=== PATIENT | male | born 1970 | race American Indian/Alaskan Native ===

== ENCOUNTER 2019-02-26 02:26 | Inpatient (IN) | payer MEDICARE ==
--- NOTE | 2019-02-26 04:27 | Emergency Department Report ---
HPI - General Chief Complaint: Extremity Injury, Lower Time Seen by Provider: 02/26/19 02:43 - HPI HPI: 48-year-old male presents to the emergency department via EMS from [facility] with a complaint of a left ankle fracture. He presents with a radiology report that shows a trimalleolar fracture. The patient had said that he was going to the bathroom and his body went one way as he fell but his foot and leg remained planted. The patient received 100 g of fentanyl in route with EMS that has caused him to be sedated. He has a past medical history of Parkinson's disease, bipolar disorder, hyperlipidemia, hypertension. ED Past Medical Hx - Past Medical History Hx Hypertension: Yes Hx Congestive Heart Failure: No Hx Diabetes: No Hx Seizures: Yes Hx Psychiatric Treatment: Yes (Bipolar, Depression) Hx Asthma: No Hx COPD: No Hx HIV: No Additional medical history: Parkinson's, PLEURISY, ANXIETY, CYSTITIS, CHRONIC PAIN , HYPERLIPIDEMIA, CHRONIC RESP. FAILURE - Surgical History Additional Surgical History: LEFT ARM - Social History Smoking Status: Unknown if ever smoked - Medications Home Medications: Home Medications Medication Instructions Recorded Confirmed Last Taken Type Carvedilol [Coreg] 3.125 mg PO BID 05/16/17 01/10/18 1 Day Ago History ~01/09/18 Gabapentin [Neurontin] 300 mg PO Q8HR 05/16/17 01/10/18 1 Day Ago History ~01/09/18 PARoxetine [Paxil] 20 mg PO QAM 05/16/17 01/10/18 1 Day Ago History ~01/09/18 QUEtiapine [SEROquel] 400 mg PO QHS 05/16/17 01/10/18 1 Day Ago History ~01/09/18 Rosuvastatin Calcium 20 mg PO QHS 05/16/17 01/10/18 1 Day Ago History ~01/09/18 amLODIPine [Norvasc] 10 mg PO QAM 05/16/17 01/10/18 1 Day Ago History ~01/09/18 Carbidopa/Levodopa 10-100 [Sinemet 3 tab PO TID 30 Days tablet 05/23/17 01/10/18 1 Day Ago Rx 10/100] ~01/09/18 diazePAM TAB [Valium] 5 mg PO Q8H #90 tablet 05/23/17 01/10/18 1 Day Ago Rx ~01/09/18 ED Review of Systems ROS: Stated complaint: LT ANKLE PAIN Other details as noted in HPI Comment: All other systems reviewed and negative Constitutional: denies: chills, fever Eyes: denies: eye pain, vision change ENT: denies: ear pain, throat pain Respiratory: denies: cough, shortness of breath Cardiovascular: denies: chest pain, palpitations Gastrointestinal: denies: abdominal pain, vomiting Genitourinary: denies: dysuria, frequency Musculoskeletal: joint swelling, arthralgia Skin: denies: rash, lesions Neurological: denies: headache, numbness Physical Exam - Physical Exam Vital Signs: Vital Signs 02/26/19 02:33 Temperature 98.4 F Pulse Rate 94 H Respiratory 16 Rate Blood Pressure 144/85 O2 Sat by Pulse 100 Oximetry Physical Exam: GENERAL: The patient is well-developed well-nourished. HENT: Normocephalic. Atraumatic. Patient has moist mucous membranes. EYES: Extraocular motions are intact. NECK: Supple. Trachea is midline. CHEST/LUNGS: Clear to auscultation. There is no respiratory distress noted. HEART/CARDIOVASCULAR: Regular. There is no tachycardia. There is no murmur. ABDOMEN: Abdomen is soft, nontender. There is no abdominal distention. SKIN: There is nonpitting swelling of the left ankle and distal leg. NEURO: The patient is awake, alert, and oriented. The patient is cooperative. The patient has no focal neurologic deficits. The patient has slow speech but not slurred. MUSCULOSKELETAL: There is tenderness to palpation to the circumferential left ankle and distal tib-fib. Decreased range of motion of the left foot and ankle secondary to pain and no fracture. +2 over 4 pedal pulse and capillary refill less than 2 seconds to the affected left lower extremity. ED Course Vital Signs 02/26/19 02:33 Temperature 98.4 F Pulse Rate 94 H Respiratory 16 Rate Blood Pressure 144/85 O2 Sat by Pulse 100 Oximetry - Consultations Consultation #1: 02/26/19 04:56 I spoke with the orthopedist on-call, Dr. Chaudhry, who has agreed to consult on this patient regarding his trimalleolar fracture. ED Medical Decision Making - Radiology Data Radiology results: image reviewed interpreted by me: X-ray of the left ankle shows a trimalleolar fracture. - Medical Decision Making This patient presents from his retirement facility with a left trimalleolar ankle fracture. He was placed in a [place] splint. He is neurovascularly intact both before and after the splint placement. I spoke with the individual who was listed as the person to contact, Yani Garcia, but she was a previous caregiver at a cup that the patient was at and will sometimes look out after him, but is not DPOA or medical decision maker. The patient says that he does not have any family. My concern is that the patient would go back to the retirement facility and have a difficult time with outpatient orthopedic follow-up. While the patient does have to use a walker or the back of a wheelchair in order to ambulate, the patient does ambulate, and therefore may need surgical repair of this trimalleolar fracture. For this reason, I spoke with the orthopedist operations boardman has agreed to consult on the patient. And the patient was accepted for admission by the hospitalist service and Dr. Post. - Differential Diagnosis ankle fracture, ankle sprain, contusion Critical Care Time: No Critical care attestation.: If time is entered above; I have spent that time in minutes in the direct care of this critically ill patient, excluding procedure time. ED Disposition Clinical Impression: Parkinson disease Trimalleolar fracture of ankle, closed Qualifiers: Encounter type: initial encounter Laterality: left Qualified Code(s): S82.852A - Displaced trimalleolar fracture of left lower leg, initial encounter for closed fracture Disposition: 09 OP ADMIT IP TO THIS HOSP Is pt being admited?: Yes Condition: Fair Referrals: FELIPE REY MD [Primary Care Provider] - 3-5 Days
[2019-02-26 05:05] LABS: Basophils % (Auto) 0.4 % (0.0-1.8); Eosinophils # (Auto) 0.1 K/mm3 (0.0-0.4); Eosinophils % (Auto) 0.9 % (0.0-4.3); Hematocrit 40.5 % (35.5-45.6); Hemoglobin 13.7 gm/dl (11.8-15.2); Lymphocytes # (Auto) 1.8 K/mm3 (1.2-5.4); Mean Corpuscular HGB Conc 34 % (32-34); Mean Corpuscular Volume 88 fl (84-94); Monocytes # (Auto) 0.5 K/mm3 (0.0-0.8); Platelet Count 177 K/mm3 (140-440); Red Blood Count 4.61 M/mm3 (3.65-5.03); Red Cell Distribution Width 14.4 % (13.2-15.2)
[2019-02-26 05:25] LABS: BUN/Creatinine Ratio 12; Blood Urea Nitrogen 11 mg/dL (9-20); Calcium 9.2 mg/dL (8.4-10.2); Hemolysis Index 4
--- NOTE | 2019-02-26 05:58 | History and Physical Report ---
<ANIYAH BUCKLEY - Last Filed: 02/26/19 06:22> History of Present Illness Date of examination: 02/19/19 Date of admission: 02/26/2019 Chief complaint: s/p fall History of present illness: Pt is a 48-year-old male with PMHx of Parkinson's disease, bipolar disorder, hyperlipidemia, hypertension who was brought to the ER by EMS for c/o left ankle pain. Pt resides in a SNF ([facility]), he reports that he fell at the SNF and hurts his left ankle, he complains of severe pain on the left ankle (which was treated prior to arrival) and inability to bear weight on the left leg. He denies any acute illness, he denies head injury, denies dizziness, denies visual changes, denies sycope. Pt presents with a radiology report from the facility that shows a trimalleolar fracture. Pt is admitted for fracture repair surgery in am. Past History Past Medical History: hypertension, hyperlipidemia, other (parkinson's disease) Past Surgical History: No surgical history Social history: no significant social history Family history: no significant family history Medications and Allergies Allergies Allergy/AdvReac Type Severity Reaction Status Date / Time No Known Allergies Allergy Verified 05/31/17 14:47 Home Medications Medication Instructions Recorded Confirmed Last Taken Type Carvedilol [Coreg] 3.125 mg PO BID 05/16/17 02/28/19 1 Day Ago History ~01/09/18 Gabapentin [Neurontin] 300 mg PO Q8HR 05/16/17 02/28/19 1 Day Ago History ~01/09/18 PARoxetine [Paxil] 20 mg PO QAM 05/16/17 02/28/19 1 Day Ago History ~01/09/18 QUEtiapine [SEROquel] 400 mg PO QHS 05/16/17 02/28/19 1 Day Ago History ~01/09/18 Rosuvastatin Calcium 20 mg PO QHS 05/16/17 02/28/19 1 Day Ago History ~01/09/18 amLODIPine [Norvasc] 10 mg PO QAM 05/16/17 02/28/19 1 Day Ago History ~01/09/18 Carbidopa/Levodopa 10-100 [Sinemet 3 tab PO TID 30 Days tablet 05/23/17 02/28/19 1 Day Ago Rx 10/100] ~01/09/18 diazePAM TAB [Valium] 5 mg PO Q8H #90 tablet 05/23/17 02/28/19 1 Day Ago Rx ~01/09/18 levoFLOXacin [Levaquin] 750 mg PO QDAY #3 tablet 03/03/19 Unknown Rx Active Meds: Active Medications Enoxaparin Sodium (Lovenox) 40 mg SUB-Q QDAY@1000 [facility] Review of Systems Musculoskeletal: limitation of motion, fractures Exam - Constitutional Vitals: Temp Pulse Resp BP Pulse Ox 98.4 F 77 20 104/70 96 02/26/19 02:33 02/26/19 05:00 02/26/19 05:00 02/26/19 05:00 02/26/19 05:00 General appearance: Present: no acute distress - EENT Eyes: Present: EOM intact ENT: hearing intact - Neck Neck: Present: supple, normal ROM - Respiratory Respiratory: bilateral: CTA - Cardiovascular Rhythm: regular - Extremities Extremities: no ischemia, No edema Peripheral Pulses: within normal limits - Abdominal General gastrointestinal: Present: non-tender, non-distended Male genitourinary: Present: deferred - Rectal Rectal Exam: deferred - Integumentary Integumentary: Present: warm, dry - Musculoskeletal Musculoskeletal: other (left ankle fractur and pain) - Psychiatric Psychiatric: cooperative - Neurologic Neurologic: moves all extremities Results - Labs CBC & Chem 7: 02/26/19 04:40 02/26/19 04:40 Labs: Laboratory Last Values WBC 7.4 K/mm3 (4.5-11.0) 02/26/19 04:40 RBC 4.61 M/mm3 (3.65-5.03) 02/26/19 04:40 Hgb 13.7 gm/dl (11.8-15.2) 02/26/19 04:40 Hct 40.5 % (35.5-45.6) 02/26/19 04:40 MCV 88 fl (84-94) 02/26/19 04:40 MCH 30 pg (28-32) 02/26/19 04:40 MCHC 34 % (32-34) 02/26/19 04:40 RDW 14.4 % (13.2-15.2) 02/26/19 04:40 Plt Count 177 K/mm3 (140-440) 02/26/19 04:40 Lymph % (Auto) 24.0 % (13.4-35.0) 02/26/19 04:40 Reynolds % (Auto) 7.0 % (0.0-7.3) 02/26/19 04:40 Eos % (Auto) 0.9 % (0.0-4.3) 02/26/19 04:40 Baso % (Auto) 0.4 % (0.0-1.8) 02/26/19 04:40 Lymph # 1.8 K/mm3 (1.2-5.4) 02/26/19 04:40 Reynolds # 0.5 K/mm3 (0.0-0.8) 02/26/19 04:40 Eos # 0.1 K/mm3 (0.0-0.4) 02/26/19 04:40 Baso # 0.0 K/mm3 (0.0-0.1) 02/26/19 04:40 Seg Neutrophils % 67.7 % (40.0-70.0) 02/26/19 04:40 Seg Neutrophils # 5.0 K/mm3 (1.8-7.7) 02/26/19 04:40 Sodium 142 mmol/L (137-145) 02/26/19 04:40 Potassium 4.0 mmol/L (3.6-5.0) 02/26/19 04:40 Chloride 104.4 mmol/L (98-107) 02/26/19 04:40 Carbon Dioxide 26 mmol/L (22-30) 02/26/19 04:40 16 mmol/L 02/26/19 04:40 BUN 11 mg/dL (9-20) 02/26/19 04:40 0.9 mg/dL (0.8-1.5) 02/26/19 04:40 Estimated GFR > 60 ml/min 02/26/19 04:40 12 % 02/26/19 04:40 Glucose 134 mg/dL (75-100) H 02/26/19 04:40 Calcium 9.2 mg/dL (8.4-10.2) 02/26/19 04:40 Assessment and Plan Assessment and plan: 1. Left trimaleolar fracture 2. s/p fall 3. Left ankle pain (due to above 1 &2) 4. Hypertension 5. Bipolar disorder 6. Parkinson's disease 7. Hyperlipidemia Plan: Pt is admitted for left ankle fracture Consult orthopedic for evaluation Pain control PRN with morphine Resume home meds EKG for pre-op clearance Further plan per hospital course Pt's condition and plan of care d/w Dr Post Advance Directives: Yes VTE prophylaxis?: Mechanical Plan of care discussed with patient/family: Yes <CHAVEZ POST - Last Filed: 03/05/19 22:24> History of Present Illness Date of admission: 02/26/19 05:08 Medications and Allergies Active Meds: Active Medications Acetaminophen (Tylenol) 650 mg PO Q4H PRN PRN Reason: Pain MILD(1-3)/Fever >100.5/CAMPOS Amlodipine Besylate (Norvasc) 10 mg PO QAM [facility] Carbidopa/Levodopa (Sinemet) 3 each PO TID [facility] Carvedilol (Coreg) 3.125 mg PO BID [facility] Diazepam (Valium) 5 mg PO Q8H [facility] Enoxaparin Sodium (Lovenox) 40 mg SUB-Q QDAY@1000 [facility] Gabapentin (Neurontin) 300 mg PO Q8HR [facility] Sodium Chloride (Nacl 0.45% 1000 Ml) 1,000 mls @ 50 mls/hr IV DIRECT [facility] Miscellaneous Medication (Rosuvastatin Calcium [Rosuvastatin Calcium]) 20 mg PO QHS [facility] Morphine Sulfate (Morphine) 2 mg IV Q4H PRN PRN Reason: Pain, Moderate (4-6) Ondansetron HCl (Zofran) 4 mg IV Q8H PRN PRN Reason: Nausea And Vomiting Quetiapine Fumarate (Seroquel) 400 mg PO QHS [facility] Sodium Chloride (Sodium Chloride Flush Syringe 10 Ml) 10 ml IV BID [facility] Sodium Chloride (Sodium Chloride Flush Syringe 10 Ml) 10 ml IV PRN PRN PRN Reason: LINE FLUSH Exam - Constitutional Vitals: Temp Pulse Resp BP Pulse Ox 98.4 F 78 18 119/77 95 02/26/19 02:33 02/26/19 05:30 02/26/19 05:30 02/26/19 05:30 02/26/19 05:30 Results - Labs CBC & Chem 7: 02/27/19 09:47 02/27/19 09:47 Labs: Laboratory Last Values WBC 7.4 K/mm3 (4.5-11.0) 02/26/19 04:40 RBC 4.61 M/mm3 (3.65-5.03) 02/26/19 04:40 Hgb 13.7 gm/dl (11.8-15.2) 02/26/19 04:40 Hct 40.5 % (35.5-45.6) 02/26/19 04:40 MCV 88 fl (84-94) 02/26/19 04:40 MCH 30 pg (28-32) 02/26/19 04:40 MCHC 34 % (32-34) 02/26/19 04:40 RDW 14.4 % (13.2-15.2) 02/26/19 04:40 Plt Count 177 K/mm3 (140-440) 02/26/19 04:40 Lymph % (Auto) 24.0 % (13.4-35.0) 02/26/19 04:40 Reynolds % (Auto) 7.0 % (0.0-7.3) 02/26/19 04:40 Eos % (Auto) 0.9 % (0.0-4.3) 02/26/19 04:40 Baso % (Auto) 0.4 % (0.0-1.8) 02/26/19 04:40 Lymph # 1.8 K/mm3 (1.2-5.4) 02/26/19 04:40 Reynolds # 0.5 K/mm3 (0.0-0.8) 02/26/19 04:40 Eos # 0.1 K/mm3 (0.0-0.4) 02/26/19 04:40 Baso # 0.0 K/mm3 (0.0-0.1) 02/26/19 04:40 Seg Neutrophils % 67.7 % (40.0-70.0) 02/26/19 04:40 Seg Neutrophils # 5.0 K/mm3 (1.8-7.7) 02/26/19 04:40 Sodium 142 mmol/L (137-145) 02/26/19 04:40 Potassium 4.0 mmol/L (3.6-5.0) 02/26/19 04:40 Chloride 104.4 mmol/L (98-107) 02/26/19 04:40 Carbon Dioxide 26 mmol/L (22-30) 02/26/19 04:40 16 mmol/L 02/26/19 04:40 BUN 11 mg/dL (9-20) 02/26/19 04:40 0.9 mg/dL (0.8-1.5) 02/26/19 04:40 Estimated GFR > 60 ml/min 02/26/19 04:40 12 % 02/26/19 04:40 Glucose 134 mg/dL (75-100) H 02/26/19 04:40 Calcium 9.2 mg/dL (8.4-10.2) 02/26/19 04:40 Assessment and Plan Assessment and plan: 48 year old man with history of hypertension, bipolar, parkinsons, hyperlipidemia, wounds was sent from [place] for evaluation of left ankle pain. He got up to use the bathroom, fell, hurt appropriate in his ankle. He now has a fracture, orthopedic was consulted to see the patient
[2019-02-26] MEDS ORDERED: SODIUM CHLORIDE FLUSH SYRINGE 10 ML IV PRN (06:17)
[2019-02-26] MEDS ORDERED: ZOFRAN IV PRN (06:17)
--- NOTE | 2019-02-26 07:57 | XRay Report ---
PROCEDURE: XR ANKLE 3+V LT TECHNIQUE: Left ankle, 3 views HISTORY: left ankle pain, fracture COMPARISON: None FINDINGS: There is an oblique fracture of the distal fibula extending to the level of the joint space. There is a fracture through the medial malleolus. Fibular fracture and talus are mildly displaced posterolate rally. There may be a posterior malleolar fracture although not clear. IMPRESSION: Bimalleolar (possibly trimalleolar) ankle fracture with some posterolateral disc placeme nt. This document is electronically signed by Yasemin Price MD., February 26 2019 07:55:53 AM ET
[2019-02-26] MEDS: NORVASC PO SCH (09:45)
[2019-02-26] MEDS: COREG PO SCH ×2 (09:45→22:05)
[2019-02-26] MEDS: LOVENOX SUB-Q SCH (09:45)
[2019-02-26] MEDS: SODIUM CHLORIDE FLUSH SYRINGE 10 ML IV SCH ×2 (09:46→22:06)
[2019-02-26] MEDS: VALIUM PO SCH ×3 (09:48→22:04)
[2019-02-26] MEDS ORDERED: LOVENOX SUB-Q SCH (10:00)
[2019-02-26] MEDS: NACL 0.45% 1000 ML 1,000 ML IV SCH (10:00)
[2019-02-26] MEDS: SINEMET PO SCH ×3 (10:09→22:05)
--- NOTE | 2019-02-26 15:00 | Consultation ---
History of Present Illness - HPI Consult date: 02/26/19 Consult reason: fracture History of present illness: 48-year-old male with PMHx of Parkinson's disease, bipolar disorder, hyperlipidemia, hypertension who was brought to the ER by EMS for c/o left ankle pain. Pt resides in a SNF ([facility]), he reports that he fell at the SNF and hurts his left ankle, he complains of severe pain on the left ankle (which was treated prior to arrival) and inability to bear weight on the left leg. He was seen in the emergency room at [facility] where x-rays were taken revealing a displaced bimalleolar ankle fracture Past History Past Medical History: hypertension, hyperlipidemia, other (parkinson's disease) Past Surgical History: No surgical history Social history: no significant social history Family history: no significant family history Medications and Allergies Allergies Allergy/AdvReac Type Severity Reaction Status Date / Time No Known Allergies Allergy Verified 05/31/17 14:47 Home Medications Medication Instructions Recorded Confirmed Last Taken Type Carvedilol [Coreg] 3.125 mg PO BID 05/16/17 01/10/18 1 Day Ago History ~01/09/18 Gabapentin [Neurontin] 300 mg PO Q8HR 05/16/17 01/10/18 1 Day Ago History ~01/09/18 PARoxetine [Paxil] 20 mg PO QAM 05/16/17 01/10/18 1 Day Ago History ~01/09/18 QUEtiapine [SEROquel] 400 mg PO QHS 05/16/17 01/10/18 1 Day Ago History ~01/09/18 Rosuvastatin Calcium 20 mg PO QHS 05/16/17 01/10/18 1 Day Ago History ~01/09/18 amLODIPine [Norvasc] 10 mg PO QAM 05/16/17 01/10/18 1 Day Ago History ~01/09/18 Carbidopa/Levodopa 10-100 [Sinemet 3 tab PO TID 30 Days tablet 05/23/17 01/10/18 1 Day Ago Rx 10/100] ~01/09/18 diazePAM TAB [Valium] 5 mg PO Q8H #90 tablet 05/23/17 01/10/18 1 Day Ago Rx ~01/09/18 Active Meds: Active Medications Acetaminophen (Tylenol) 650 mg PO Q4H PRN PRN Reason: Pain MILD(1-3)/Fever >100.5/CAMPOS Amlodipine Besylate (Norvasc) 10 mg PO QAM [facility] Last Admin: 02/26/19 09:45 Dose: 10 mg Documented by: Atorvastatin Calcium (Lipitor) 40 mg PO QHS [facility] Carbidopa/Levodopa (Sinemet) 3 each PO TID [facility] Last Admin: 02/26/19 10:09 Dose: 3 each Documented by: Carvedilol (Coreg) 3.125 mg PO BID [facility] Last Admin: 02/26/19 09:45 Dose: 3.125 mg Documented by: Diazepam (Valium) 5 mg PO Q8HR [facility] Last Admin: 02/26/19 09:48 Dose: 5 mg Documented by: Enoxaparin Sodium (Lovenox) 40 mg SUB-Q QDAY@1000 [facility] Last Admin: 02/26/19 09:45 Dose: 40 mg Documented by: Gabapentin (Neurontin) 300 mg PO Q8HR [facility] Sodium Chloride (Nacl 0.45% 1000 Ml) 1,000 mls @ 50 mls/hr IV DIRECT [facility] Last Admin: 02/26/19 10:00 Dose: 50 mls/hr Documented by: Morphine Sulfate (Morphine) 2 mg IV Q4H PRN PRN Reason: Pain, Moderate (4-6) Ondansetron HCl (Zofran) 4 mg IV Q8H PRN PRN Reason: Nausea And Vomiting Quetiapine Fumarate (Seroquel) 400 mg PO QHS [facility] Sodium Chloride (Sodium Chloride Flush Syringe 10 Ml) 10 ml IV BID [facility] Last Admin: 02/26/19 09:46 Dose: 10 ml Documented by: Sodium Chloride (Sodium Chloride Flush Syringe 10 Ml) 10 ml IV PRN PRN PRN Reason: LINE FLUSH Physical Examination - Physical exam Narrative exam: At the left lower extremity patient is in a posterior coaptation splint patient is tender both medially and laterally skin is intact there is good capillary refill distally Plain x-rays of the left ankle were reviewed by me and show a displaced bimalleolar ankle fracture Eyes: PERRL ENT: Positive: clear oral mucosa Respiratory effort: normal Respiratory: bilateral: CTA Rhythm: regular Heart Sounds: Positive: S1 & S2 General gastrointestinal: Positive: soft, non-tender, non-distended, normal bowel sounds Integumentary: clear, warm, dry Neurologic: Positive: CNII-XII intact, moves all extremities, gait normal. Negative: focal deficits - Cervical Spine Neck pain: none Tenderness with palpation: none Full ROM: yes ROM: flexion: normal ROM: extension: normal ROM: rotation right: normal ROM: rotation left: normal ROM: lateral flexion right: normal ROM: lateral flexion left: normal - Lumbar Spine Back pain: none Tenderness with palpation: none Appearance: normal Full ROM: yes ROM: flexion: normal ROM: extension: normal ROM: rotation right: normal ROM: rotation left: normal ROM: lateral flexion right: normal ROM: lateral flexion left: normal Assessment and Plan Displaced Left bimalleolar ankle fracture Recommendations- recommend open reduction and internal fixation left ankle fracture
[2019-02-26] MEDS: NEURONTIN PO SCH ×2 (15:05→22:04)
--- NOTE | 2019-02-26 15:25 | Event Note ---
Date: 02/26/19 Patient seen and examined Plan for surgery tomorrow
[2019-02-26] MEDS: MORPHINE IV PRN (17:36)
[2019-02-26] MEDS ORDERED: NON-FORMULARY (Rosuvastatin Calcium [Rosuvastatin Calcium] 20 MG) PO SCH (22:00)
[2019-02-27] MEDS: NACL 0.45% 1000 ML 1,000 ML IV SCH (04:01)
[2019-02-27] MEDS: NEURONTIN PO SCH ×3 (05:47→22:52)
[2019-02-27] MEDS: VALIUM PO SCH ×3 (05:47→20:04)
[2019-02-27] MEDS: NORVASC PO SCH ×2 (09:32→10:12)
[2019-02-27] MEDS: COREG PO SCH ×3 (09:32→22:52)
[2019-02-27] MEDS: LOVENOX SUB-Q SCH (09:32)
[2019-02-27] MEDS: SINEMET PO SCH ×4 (09:32→19:57)
[2019-02-27] MEDS: SODIUM CHLORIDE FLUSH SYRINGE 10 ML IV SCH ×2 (09:33→22:53)
[2019-02-27 10:05] LABS: Basophils % (Auto) 0.4 % (0.0-1.8); Eosinophils # (Auto) 0.1 K/mm3 (0.0-0.4); Eosinophils % (Auto) 1.1 % (0.0-4.3); Hematocrit 40.5 % (35.5-45.6); Hemoglobin 13.3 gm/dl (11.8-15.2); Lymphocytes # (Auto) 1.4 K/mm3 (1.2-5.4); Lymphocytes % (Auto) 24.3 % (13.4-35.0); Mean Corpuscular HGB Conc 33 % (32-34); Mean Corpuscular Volume 89 fl (84-94); Monocytes # (Auto) 0.6 K/mm3 (0.0-0.8); Monocytes % (Auto) 10.8 % (0.0-7.3); Platelet Count 165 K/mm3 (140-440); Red Blood Count 4.55 M/mm3 (3.65-5.03); Red Cell Distribution Width 14.3 % (13.2-15.2)
[2019-02-27 10:30] LABS: BUN/Creatinine Ratio 11; Blood Urea Nitrogen 10 mg/dL (9-20); Calcium 8.3 mg/dL (8.4-10.2); Hemolysis Index 10
--- NOTE | 2019-02-27 10:45 | Anesthesia Consultation ---
Anesthesia Consult and Med Hx Date of service: 02/27/19 - Airway Anesthetic Teeth Evaluation: Good ROM Head & Neck: Adequate Mallampati Class: Class II Intubation Access Assessment: Good - Pulmonary Exam CTA: Yes - Cardiac Exam Cardiac Exam: RRR - Pre-Operative Health Status ASA Pre-Surgery Classification: ASA1 (Patient with parkinsons, HTN and high cholesterol for GA with block) - Pulmonary Hx Asthma: No COPD: No Hx Pneumonia: No - Cardiovascular System Hx Hypertension: Yes - Central Nervous System Hx Seizures: Yes Hx Psychiatric Problems: Yes - Endocrine Hx End Stage Renal Disease: No - Other Systems Hx Cancer: No
--- NOTE | 2019-02-27 10:46 | Anesthesia Day of Surgery ---
Anesthesia Day of Surgery - Day of Surgery Patient Examined: Yes Patient H&P Reviewed: Yes Patient is NPO: Yes
[2019-02-27] MEDS ORDERED: MARCAINE-EPI 0.25%-1:200,000 INFILTRATI ONE (10:57)
[2019-02-27] MEDS ORDERED: VERSED ONE (10:58)
[2019-02-27] MEDS ORDERED: MARCAINE-EPI/PF 0.5%-1:200,000 INFILTRATI ONE (10:58)
[2019-02-27] MEDS ORDERED: SUBLIMAZE ONE ×2 (10:59→11:21)
[2019-02-27] MEDS: LACTATED RINGERS 1,000 ML IV SCH ×2 (11:05→22:50)
[2019-02-27] MEDS ORDERED: LACTATED RINGERS 1,000 ML ONE (11:05)
[2019-02-27] MEDS ORDERED: DIPRIVAN 10 MG/ML IV ONE (11:22)
[2019-02-27] MEDS ORDERED: ANCEF/STERILE WATER 2 GM/20 ML IV NR (13:11)
[2019-02-27] MEDS ORDERED: NACL 0.9% IR ONE (14:05)
[2019-02-27] MEDS ORDERED: HYDROGEN PEROXIDE ONE (14:43)
--- NOTE | 2019-02-27 15:33 | Procedure Note ---
Date of procedure: 02/27/19 Pre-op diagnosis: displaced left bimalleolar ankle fracture Post-op diagnosis: same Procedure: Open reduction internal fixation left ankle Procedure The patient was brought to the operating room after being given a femoral nerve block in preoperative holding patient was placed supine on the OR table The left lower extremity was prepped and draped in the usual sterile manner. A timeout procedure was done to identify the patient and the correct operative site. The leg was exsanguinated followed by inflation of the pneumatic tourniquet to 350 mmHg. An incision was made along the distal fibula beginning at the distal third and continuing down towards the tip of the malleolus this is taken down sharply to skin and subcutaneous fracture was identified and was manipulated into a more reduced position this was then held by way of a 8 hole one third semitubular plate screws were placed to secure the fracture fragments in anatomic position following plating of the lateral malleolus A midline a medial incision was made centered over the distal portion of the medial malleolus again this was taken down sharply to skin and subcutaneous care was taken to identify the saphenous vein and this was retracted out of the operative field which weredown to the fracture site which was displaced medially following manipulation of fracture fragments a temporary K wire was used to stabilize the reduction next 24.0 cancellus screws were placed into the medial fragment via C- arm visualization plain x-rays were taken in both the AP and lateral views or plain and show good reduction at the fracture site and placement of the hardware next the wound was copiously irrigated and was closed in a standard routine fashion. Dressings were applied the patient tolerated the procedure there were no complications. He was sent to postanesthesia recovery in stable condition Anesthesia: MAC, regional Surgeon: EMILY KAMARA Checking Clerk: CRISTEL GURROLA Estimated blood loss: minimal Pathology: none Condition: stable Disposition: PACU
[2019-02-27] MEDS ORDERED: SODIUM CHLORIDE FLUSH SYRINGE 10 ML IV NR (16:00)
--- NOTE | 2019-02-27 16:29 | Progress Note ---
Assessment and Plan /Left bimaleolar fracture - Patient admitted to surgical unit - Consulted Dr. Chaudhry, status post Open reduction internal fixation left ankle today - Consult PT, will follow recommendation - Further management per clinical course s/p fall, CT head unremarkable / Hypertension, stable / Bipolar disorder, continue home meds / Parkinson's disease, continue supportive care and home meds / Hyperlipidemia, continue statin /DVT prophylaxis, continue Lovenox Brief History: Pt is a 48-year-old male with PMHx of Parkinson's disease, bipolar disorder, hyperlipidemia, hypertension who was brought to the ER by EMS for c/o left ankle pain. Pt resides in a SNF ([facility]). Radiological data: Left ankle x-ray, bimalleolar left ankle fracture Hospitalist Physical exam: GENERAL: well-developed and well-nourished male lying on bed appeared to be in no discomfort. HEENT: Normocephalic. Atraumatic. No conjunctival congestion or icterus. Patient has moist mucous membranes. NECK: Supple. Trachea midline. CHEST/LUNGS: Clear to auscultated bilaterally, breathing nonlabored. No wheezes crackles or rhonchi. HEART/CARDIOVASCULAR: Regular in rate and rhythm. S1 and S2 positive. ABDOMEN: Abdomen is soft, nontender. Patient has normal bowel sounds. SKIN: There is no rash. Warm and dry. NEURO: No focal motor deficit. Follows command. MUSCULOSKELETAL: No joint effusion or tenderness. EXTRIMITY: No edema, no cyanosis or clubbing. Left ankle with surgical dressing PSYCH: Cooperative. Subjective Date of service: 02/27/19 Interval history: Patient seen and examined. Medical records and medication list reviewed. No acute event overnight noted by the RN. Patient denies any chest pain or difficulty breathing. Status post surgery today, tolerated well Discussed plan of care at bedside with patient. Objective - Constitutional Vitals: Vital Signs - 12hr 02/27/19 02/27/19 02/27/19 08:11 10:25 11:25 Temperature 97.8 F 98.6 F Pulse Rate 84 81 90 Respiratory 20 14 13 Rate Blood Pressure 99/67 115/79 129/68 O2 Sat by Pulse 94 95 96 Oximetry 02/27/19 02/27/19 02/27/19 11:36 11:40 11:45 Temperature Pulse Rate 92 H 93 H 94 H Respiratory 16 17 13 Rate Blood Pressure 130/68 124/72 124/68 O2 Sat by Pulse 96 96 96 Oximetry 02/27/19 02/27/19 02/27/19 11:50 15:15 15:20 Temperature 97.1 F L Pulse Rate 96 H 69 69 Respiratory 15 21 17 Rate Blood Pressure 128/71 106/74 101/69 O2 Sat by Pulse 96 95 95 Oximetry 02/27/19 02/27/19 02/27/19 15:25 15:30 15:45 Temperature 98.0 F Pulse Rate 68 13 L 18 L Respiratory 20 15 18 Rate Blood Pressure 110/77 118/78 114/76 O2 Sat by Pulse 95 96 96 Oximetry - Labs CBC & Chem 7: 02/27/19 09:47 02/27/19 09:47 Labs: Abnormal lab results 02/27/19 02/27/19 Range/Units 09:47 09:47 [place] % (Auto) 10.8 H (0.0-7.3) % Calcium 8.3 L (8.4-10.2) mg/dL
[2019-02-27] MEDS: MORPHINE IV PRN (19:45)
[2019-02-27] MEDS: TYLENOL PO PRN (20:35)
[2019-02-28] MEDS: VALIUM PO SCH ×4 (00:13→22:18)
[2019-02-28] MEDS: TYLENOL PO PRN ×2 (04:26→09:04)
--- NOTE | 2019-02-28 07:20 | XRay Report ---
INTRAOPERATIVE LEFT ANKLE RADIOGRAPHS INDICATION: Left ankle fracture. COMPARISON: Yesterday. IMAGES/CINE CLIPS: 2 FINDINGS: Intraoperative fluoroscopic guidance provided. Distal fibular plate and screw stabilization as also 2 long threaded screws stabilizing the medial malleolus fracture noted. Bony detail limited with grossly intact overall articulation. CONCLUSION: Intraoperative fluoroscopic guidance provided for open reduction and internal fixation of left ankle fractures, as described. Thank you for the opportunity to participate in this patient's care.
[2019-02-28] MEDS: SINEMET PO SCH ×3 (09:01→22:18)
[2019-02-28] MEDS: NEURONTIN PO SCH ×3 (09:03→22:18)
[2019-02-28] MEDS: COREG PO SCH ×2 (10:12→22:18)
[2019-02-28] MEDS: LOVENOX SUB-Q SCH (10:12)
[2019-02-28] MEDS: NORVASC PO SCH (10:50)
--- NOTE | 2019-02-28 14:51 | Progress Note ---
Assessment and Plan /Left bimaleolar fracture - Patient admitted to surgical unit - Consulted Dr. Chaudhry, status post Open reduction internal fixation left ankle 02/27 - Consult PT, will follow recommendation - Further management per clinical course /Febrile illness - Started to spike temperature overnight -Blood culture obtained we'll follow results - We'll also order UA , will start on Levaquin empirically until culture results are negative /s/p fall, CT head unremarkable / Hypertension, stable / Bipolar disorder, continue home meds / Parkinson's disease, continue supportive care and home meds / Hyperlipidemia, continue statin /DVT prophylaxis, continue Lovenox Brief History: Pt is a 48-year-old male with PMHx of Parkinson's disease, bipolar disorder, hyperlipidemia, hypertension who was brought to the ER by EMS for c/o left ankle pain. Pt resides in a SNF ([facility] Radiological data: Left ankle x-ray, bimalleolar left ankle fracture Hospitalist Physical exam: GENERAL: well-developed and well-nourished male lying on bed appeared to be in no discomfort. HEENT: Normocephalic. Atraumatic. No conjunctival congestion or icterus. Patient has moist mucous membranes. NECK: Supple. Trachea midline. CHEST/LUNGS: Clear to auscultated bilaterally, breathing nonlabored. No wheezes crackles or rhonchi. HEART/CARDIOVASCULAR: Regular in rate and rhythm. S1 and S2 positive. ABDOMEN: Abdomen is soft, nontender. Patient has normal bowel sounds. SKIN: There is no rash. Warm and dry. NEURO: No focal motor deficit. Follows command. MUSCULOSKELETAL: No joint effusion or tenderness. EXTRIMITY: No edema, no cyanosis or clubbing. Left ankle with surgical dressing PSYCH: Cooperative. Subjective Date of service: 02/28/19 Interval history: Patient seen and examined. Medical records and medication list reviewed. No acute event overnight noted by the RN. Patient denies any chest pain or difficulty breathing. Status post surgery yesterday, tolerated well Start to spike temperature last night, blood culture ordered Discussed plan of care at bedside with patient. Objective - Constitutional Vitals: Vital Signs - 12hr 02/28/19 02/28/19 02/28/19 04:16 04:26 08:08 Temperature 102.7 F H 100.6 F H Pulse Rate 129 H 115 H Respiratory 28 H 20 20 Rate Blood Pressure 138/86 115/81 O2 Sat by Pulse 93 93 Oximetry 02/28/19 02/28/19 09:00 10:10 Temperature Pulse Rate Respiratory Rate Blood Pressure 107/74 O2 Sat by Pulse 93 Oximetry - Labs CBC & Chem 7: 02/27/19 09:47 02/27/19 09:47
[2019-02-28] MEDS: LEVAQUIN 750MG/150ML 750 MG/150 ML BAG IV SCH (15:53)
[2019-02-28] MEDS: MORPHINE IV PRN (18:44)
[2019-02-28] MEDS: LACTATED RINGERS 1,000 ML IV SCH (18:46)
--- NOTE | 2019-02-28 21:40 | Progress Note ---
Assessment and Plan s/p ORIF left ankle doing ok continue observation most likely prolonged rehab, can dc to SNF at anytime Subjective Date of service: 02/28/19 Interval history: resting in bed, no c/o's noted Objective Vital signs: Vital Signs - 12hr 02/28/19 02/28/19 02/28/19 10:10 14:52 15:53 Temperature 98.9 F 99.7 F H Pulse Rate 101 H Respiratory 18 Rate Blood Pressure 107/74 103/70 O2 Sat by Pulse 91 Oximetry Narrative Exam: left ankle - post op dressing intact, good capillary refill - Labs CBC & BMP: 02/27/19 09:47 02/27/19 09:47
[2019-02-28] MEDS: SODIUM CHLORIDE FLUSH SYRINGE 10 ML IV SCH ×2 (22:31→22:32)
[2019-03-01] MEDS: TYLENOL PO PRN ×5 (01:16→22:04)
[2019-03-01 05:53] LABS: Bacteria,Urine 1+ /HPF (Negative); Bilirubin,Urine NEG (Negative); Blood,Urine NEG (Negative); Color,Urine Amber (Yellow); Mucus,Urine FEW /HPF
[2019-03-01] MEDS: NEURONTIN PO SCH ×3 (06:10→21:59)
[2019-03-01] MEDS: VALIUM PO SCH ×3 (06:10→21:58)
[2019-03-01] MEDS: LOVENOX SUB-Q SCH (09:56)
[2019-03-01] MEDS: LEVAQUIN 750MG/150ML 750 MG/150 ML BAG IV SCH (09:56)
[2019-03-01] MEDS: SODIUM CHLORIDE FLUSH SYRINGE 10 ML IV SCH ×2 (10:02→22:00)
[2019-03-01] MEDS: SINEMET PO SCH ×3 (11:03→20:02)
[2019-03-01] MEDS: PAXIL PO SCH (11:04)
[2019-03-01] MEDS: LACTATED RINGERS 1,000 ML IV SCH (11:07)
[2019-03-01] MEDS: COREG PO SCH ×2 (12:48→21:58)
[2019-03-01] MEDS: NORVASC PO SCH (12:49)
--- NOTE | 2019-03-01 18:05 | Progress Note ---
Assessment and Plan /Left bimaleolar fracture - Patient admitted to surgical unit - Consulted Dr. Chaudhry, status post Open reduction internal fixation left ankle 02/27 - Consult PT, will follow recommendation - Further management per clinical course /Febrile illness likely from UTI, Likely POA - Started to spike temperature from 02/27 -Blood culture obtained - negative - UA with WBC and + LE , cont on Levaquin empirically until culture results are negative /s/p fall, CT head unremarkable / Hypertension, stable / Bipolar disorder, continue home meds / Parkinson's disease, continue supportive care and home meds / Hyperlipidemia, continue statin /DVT prophylaxis, continue Lovenox Disposition: when afebrile Brief History: Pt is a 48-year-old male with PMHx of Parkinson's disease, bipolar disorder, hyperlipidemia, hypertension who was brought to the ER by EMS for c/o left ankle pain. Pt resides in a SNF ([facility]). Radiological data: Left ankle x-ray, bimalleolar left ankle fracture Hospitalist Physical exam: GENERAL: well-developed and well-nourished male lying on bed appeared to be in no discomfort. HEENT: Normocephalic. Atraumatic. No conjunctival congestion or icterus. Patient has moist mucous membranes. NECK: Supple. Trachea midline. CHEST/LUNGS: Clear to auscultated bilaterally, breathing nonlabored. No wheezes crackles or rhonchi. HEART/CARDIOVASCULAR: Regular in rate and rhythm. S1 and S2 positive. ABDOMEN: Abdomen is soft, nontender. Patient has normal bowel sounds. SKIN: There is no rash. Warm and dry. NEURO: No focal motor deficit. Follows command. MUSCULOSKELETAL: No joint effusion or tenderness. EXTRIMITY: No edema, no cyanosis or clubbing. Left ankle with surgical dressing PSYCH: Cooperative. Subjective Date of service: 03/01/19 Interval history: Patient seen and examined. Medical records and medication list reviewed. No acute event overnight noted by the RN. Patient denies any chest pain or difficulty breathing. remained febrile, blood culture so far negative Discussed plan of care at bedside with patient. Objective - Constitutional Vitals: Vital Signs - 12hr 03/01/19 03/01/19 03/01/19 07:43 12:34 15:24 Temperature 99.6 F 99.7 F H 101.1 F H Pulse Rate 98 H 110 H 43 L Respiratory 20 20 20 Rate Blood Pressure 98/73 108/75 111/44 O2 Sat by Pulse 95 94 93 Oximetry 03/01/19 17:01 Temperature Pulse Rate Respiratory 20 Rate Blood Pressure O2 Sat by Pulse Oximetry - Labs CBC & Chem 7: 02/27/19 09:47 02/27/19 09:47 Labs: Abnormal lab results 02/28/19 Range/Units 04:15 Urine WBC (Auto) 79.0 H (0.0-6.0) /HPF
[2019-03-02] MEDS: MORPHINE IV PRN ×3 (00:15→17:19)
[2019-03-02] MEDS: NEURONTIN PO SCH ×3 (06:32→21:18)
[2019-03-02] MEDS: VALIUM PO SCH ×3 (06:32→21:17)
[2019-03-02] MEDS: COREG PO SCH ×2 (11:23→21:17)
[2019-03-02] MEDS: SINEMET PO SCH ×3 (11:23→20:53)
[2019-03-02] MEDS: PAXIL PO SCH (11:24)
[2019-03-02] MEDS: LOVENOX SUB-Q SCH (11:24)
[2019-03-02] MEDS: NORVASC PO SCH (11:24)
[2019-03-02] MEDS: LEVAQUIN 750MG/150ML 750 MG/150 ML BAG IV SCH (11:25)
--- NOTE | 2019-03-02 12:20 | Progress Note ---
Assessment and Plan /Left bimaleolar fracture - Patient admitted to surgical unit - Consulted Dr. Chaudhry, status post Open reduction internal fixation left ankle 02/27 - Consult PT, will follow recommendation - Further management per clinical course /Febrile illness likely from UTI, Likely POA - Started to spike temperature from 02/27 -Blood culture obtained - negative - UA with WBC and + LE , cont on Levaquin empirically until culture results are negative /s/p fall, CT head unremarkable / Hypertension, stable / Bipolar disorder, continue home meds / Parkinson's disease, continue supportive care and home meds / Hyperlipidemia, continue statin /DVT prophylaxis, continue Lovenox Disposition: likely tomorrow if remains afebrile Brief History: Pt is a 48-year-old male with PMHx of Parkinson's disease, bipolar disorder, hyperlipidemia, hypertension who was brought to the ER by EMS for c/o left ankle pain. Pt resides in a SNF ([facility]). Radiological data: Left ankle x-ray, bimalleolar left ankle fracture Hospitalist Physical exam: GENERAL: well-developed and well-nourished male lying on bed appeared to be in no discomfort. HEENT: Normocephalic. Atraumatic. No conjunctival congestion or icterus. Patient has moist mucous membranes. NECK: Supple. Trachea midline. CHEST/LUNGS: Clear to auscultated bilaterally, breathing nonlabored. No wheezes crackles or rhonchi. HEART/CARDIOVASCULAR: Regular in rate and rhythm. S1 and S2 positive. ABDOMEN: Abdomen is soft, nontender. Patient has normal bowel sounds. SKIN: There is no rash. Warm and dry. NEURO: No focal motor deficit. Follows command. MUSCULOSKELETAL: No joint effusion or tenderness. EXTRIMITY: No edema, no cyanosis or clubbing. Left ankle with surgical dressing PSYCH: Cooperative. Subjective Date of service: 03/02/19 Interval history: Patient seen and examined. Medical records and medication list reviewed. No acute event overnight noted by the RN. Patient denies any chest pain or difficulty breathing. remained febrile, blood culture so far negative Discussed plan of care at bedside with patient. Objective - Constitutional Vitals: Vital Signs - 12hr 03/02/19 03/02/19 03/02/19 00:32 00:45 04:03 Temperature 99.7 F H 98.3 F Pulse Rate 104 H 89 Respiratory 20 20 Rate Blood Pressure 124/80 Blood Pressure 134/77 [Right] O2 Sat by Pulse 93 98 Oximetry 03/02/19 03/02/19 03/02/19 07:38 07:55 11:23 Temperature 98.6 F Pulse Rate 108 H 108 H Respiratory 18 Rate Blood Pressure 136/81 136/81 Blood Pressure [Right] O2 Sat by Pulse 96 97 Oximetry 03/02/19 11:24 Temperature Pulse Rate 108 H Respiratory Rate Blood Pressure 136/81 Blood Pressure [Right] O2 Sat by Pulse Oximetry - Labs CBC & Chem 7: 02/27/19 09:47 02/27/19 09:47
--- NOTE | 2019-03-02 13:25 | Progress Note ---
Assessment and Plan s/p ORIF left ankle doing ok continue observation most likely prolonged rehab, can dc to SNF at anytime Subjective Date of service: 03/02/19 Interval history: No complaints noted, resting comfortably in bed Objective Vital signs: Vital Signs - 12hr 03/02/19 03/02/19 03/02/19 04:03 07:38 07:55 Temperature 98.3 F 98.6 F Pulse Rate 89 108 H Respiratory 18 Rate Blood Pressure 124/80 136/81 Blood Pressure [Right] O2 Sat by Pulse 98 96 97 Oximetry 03/02/19 03/02/19 03/02/19 11:23 11:24 12:45 Temperature 99.0 F Pulse Rate 108 H 108 H 110 H Respiratory 18 Rate Blood Pressure 136/81 136/81 Blood Pressure 115/77 [Right] O2 Sat by Pulse 97 Oximetry Narrative Exam: left ankle - post op dressing intact, good capillary refill - Labs CBC & BMP: 02/27/19 09:47 02/27/19 09:47
[2019-03-02] MEDS: SODIUM CHLORIDE FLUSH SYRINGE 10 ML IV SCH (17:20)
[2019-03-02] MEDS: TYLENOL PO PRN (21:26)
[2019-03-03] MEDS: SODIUM CHLORIDE FLUSH SYRINGE 10 ML IV SCH ×2 (01:28→12:05)
[2019-03-03] MEDS: NEURONTIN PO SCH ×2 (05:20→13:27)
[2019-03-03] MEDS: VALIUM PO SCH ×2 (05:20→13:27)
[2019-03-03] MEDS: LACTATED RINGERS 1,000 ML IV SCH (05:21)
[2019-03-03] MEDS: SINEMET PO SCH ×2 (08:45→13:27)
[2019-03-03] MEDS: LEVAQUIN 750MG/150ML 750 MG/150 ML BAG IV SCH (08:59)
[2019-03-03] MEDS: COREG PO SCH (08:59)
[2019-03-03] MEDS: LOVENOX SUB-Q SCH (08:59)
[2019-03-03] MEDS: PAXIL PO SCH (08:59)
--- NOTE | 2019-03-03 11:20 | Discharge Summary ---
Providers - Providers Date of Admission: 02/26/19 05:08 Date of discharge: 03/03/19 Attending physician: CAROLYN GAN 02/26/19 04:43 Consult to Physician [CONS] Routine Comment: COMPLETED - RENU Consulting Provider: EMILY CHAUDHRY Physician Instructions: Reason For Exam: trimalleolar fracture 02/27/19 15:25 Consult to Case Management [CONS] Routine Services Needed at Discharge: Geospatial Extractor Analysis Physical Therapy Notified:: ARCHITECTURE PROFESSOR Phone number called:: ARCHITECTURE PROFESSOR 02/27/19 15:28 Physical Therapy Evaluation and Treat [CONS] Routine Comment: Reason For Exam: postoperative evaluation Weight bearing status?: Nonwt bearing Assistive devices?: Yes If so list: Wheelchair Primary care physician: FELIPE REY Hospitalization Condition: Fair Hospital course: Pt is a 48-year-old male with PMHx of Parkinson's disease, bipolar disorder, hyperlipidemia, hypertension resides in a SNF ([facility]) who was brought to the ER by EMS for c/o left ankle pain and found to have Left bimaleolar fracture. Patient was admitted for further evaluation and management. Radiological data: Left ankle x-ray, bimalleolar left ankle fracture Discharge diagnosis: /Left bimaleolar fracture - Patient admitted to surgical unit - Consulted Dr. Chaudhry, status post Open reduction internal fixation left ankle 02/27 - Consult PT, he was then send back to SNF in stable condition /Febrile illness likely from UTI, Likely POA - Started to spike temperature from 02/27 -Blood culture obtained - negative - UA with WBC and + LE , treated with Levaquin empirically /s/p fall, CT head unremarkable, supportive care / Hypertension, stable / Bipolar disorder, continue home meds / Parkinson's disease, continue supportive care and home meds / Hyperlipidemia, continue statin /DVT prophylaxis, continue Lovenox Disposition: SNF Hospitalist Physical exam: GENERAL: well-developed and well-nourished male lying on bed appeared to be in no discomfort. HEENT: Normocephalic. Atraumatic. No conjunctival congestion or icterus. Patient has moist mucous membranes. NECK: Supple. Trachea midline. CHEST/LUNGS: Clear to auscultated bilaterally, breathing nonlabored. No wheezes crackles or rhonchi. HEART/CARDIOVASCULAR: Regular in rate and rhythm. S1 and S2 positive. ABDOMEN: Abdomen is soft, nontender. Patient has normal bowel sounds. SKIN: There is no rash. Warm and dry. NEURO: No focal motor deficit. Follows command. MUSCULOSKELETAL: No joint effusion or tenderness. EXTRIMITY: No edema, no cyanosis or clubbing. Left ankle with surgical dressing PSYCH: Cooperative. Disposition: DC/TX-03 SNF [facility] Time spent for discharge: 34 minutes Core Measure Documentation - Palliative Care Palliative Care/ Comfort Measures: Not Applicable - Core Measures Any of the following diagnoses?: none Exam - Constitutional Vitals: Temp Pulse Resp BP Pulse Ox 98.1 F 88 18 117/76 94 03/03/19 07:57 03/03/19 09:00 03/03/19 07:57 03/03/19 07:57 03/03/19 07:57 Plan Activity: up only with assistance, fall precautions Weight Bearing Status: Non-Weight Bearing Diet: low fat, low salt Wound: per your surgeon's advice Follow up with: FELIPE REY MD [Primary Care Provider] - 3-5 Days EMILY CHAUDHRY MD [Staff Physician] - 7 Days Prescriptions: levoFLOXacin [Levaquin] 750 mg PO QDAY #3 tablet
[2019-03-03] MEDS: NORVASC PO SCH (12:04)
[2019-03-03 12:24] VITALS: BP 121/74
== END 2019-03-03 13:55 | DRG 493 ==
LOC: ED 02:26 → 3B-SURG 05:08
PROVIDERS: ADMIT Internal Medicine; ATTEND Internal Medicine
PROC: 0QSK04Z Reposition Left Fibula with Internal Fixation Device, Open Approach (ICD-10-PCS; principal; 2019-02-27)
PROC: 0QSH04Z Reposition Left Tibia with Internal Fixation Device, Open Approach (ICD-10-PCS; 2019-02-27)
DX: S82.842A Displaced bimalleolar fracture of left lower leg, initial encounter for closed fracture (principal); N39.0 Urinary tract infection, site not specified; J96.10 Chronic respiratory failure, unspecified whether with hypoxia or hypercapnia; E78.5 Hyperlipidemia, unspecified; F31.9 Bipolar disorder, unspecified; I10 Essential (primary) hypertension; G20 Parkinson's disease; G89.29 Other chronic pain; F41.9 Anxiety disorder, unspecified; E78.00 Pure hypercholesterolemia, unspecified; W18.39XA Other fall on same level, initial encounter; Y93.01 Activity, walking, marching and hiking; Z79.899 Other long term (current) drug therapy; Y92.128 Other place in nursing home as the place of occurrence of the external cause; Y99.8 Other external cause status
CPT/HCPCS: 36415; 64450; 80048; 81001; 85025; 87040; 87086; 87116; G0378; A9270-GY; C1713; J0690; J1650; J1956; J2250; J2270; J2704; J3010; J7030; J7120

== ENCOUNTER 2019-07-26 06:48 | Emergency (ER) | payer MEDICARE ==
[2019-07-26] MEDS ORDERED: ACETAMINOPHEN 325 MG TAB PO ONE ×2 (08:44→21:04)
--- NOTE | 2019-07-26 08:44 | Emergency Department Report ---
ED Medical Clearance HPI - General Chief complaint: Psych Stated complaint: MEDICAL CLEARANCE Time Seen by Provider: 07/26/19 08:07 Source: patient Mode of arrival: Wheelchair - History of Present Illness -: Sudden Reason for Medical Clearance: medical condition, psychiatric condition Place: other (alf) Associated Symptoms: seizure. denies: chest pain, shortness of breath, palpitations, denies other symptoms, headaches, nausea/vomiting, syncope Home medications: Home Medications Medication Instructions Recorded Confirmed Last Taken Gabapentin 300 mg PO Q8HR 05/16/17 02/28/19 1 Day Ago ~01/09/18 PARoxetine [Paxil] 20 mg PO QAM 05/16/17 02/28/19 1 Day Ago ~01/09/18 QUEtiapine [SEROquel] 400 mg PO QHS 05/16/17 02/28/19 1 Day Ago ~01/09/18 Rosuvastatin Calcium 20 mg PO QHS 05/16/17 02/28/19 1 Day Ago ~01/09/18 amLODIPine 10 mg PO QAM 05/16/17 02/28/19 1 Day Ago ~01/09/18 carvediloL [Coreg] 3.125 mg PO BID 05/16/17 02/28/19 1 Day Ago ~01/09/18 Previous Rx's Medication Instructions Recorded Last Taken Type Carbidopa/Levodopa 10-100 [Sinemet 3 tab PO TID 30 Days tablet 05/23/17 1 Day Ago Rx 10/100] ~01/09/18 diazePAM TAB [Valium] 5 mg PO Q8H #90 tablet 05/23/17 1 Day Ago Rx ~01/09/18 levoFLOXacin [Levaquin] 750 mg PO QDAY #3 tablet 03/03/19 Unknown Rx Allergies/Adverse reactions: Allergies Allergy/AdvReac Type Severity Reaction Status Date / Time No Known Allergies Allergy Verified 05/31/17 14:47 ED Review of Systems ROS: Stated complaint: MEDICAL CLEARANCE Other details as noted in HPI Comment: All other systems reviewed and negative Constitutional: denies: fever, weakness Neurological: other (seizure) Psychiatric: homicidal thoughts, suicidal thoughts. denies: visual hallucinations ED Past Medical Hx - Past Medical History Hx Hypertension: Yes Hx Congestive Heart Failure: No Hx Diabetes: No Hx Seizures: Yes Hx Psychiatric Treatment: Yes (Bipolar, Depression) Hx Asthma: No Hx COPD: No Hx HIV: No Additional medical history: Parkinson's, PLEURISY, ANXIETY, CYSTITIS, CHRONIC PAIN , HYPERLIPIDEMIA, CHRONIC RESP. FAILURE - Surgical History Additional Surgical History: LEFT ARM - Social History Smoking Status: Never Smoker Substance Use Type: Marijuana - Medications Home Medications: Home Medications Medication Instructions Recorded Confirmed Last Taken Type Gabapentin 300 mg PO Q8HR 05/16/17 02/28/19 1 Day Ago History ~01/09/18 PARoxetine [Paxil] 20 mg PO QAM 05/16/17 02/28/19 1 Day Ago History ~01/09/18 QUEtiapine [SEROquel] 400 mg PO QHS 05/16/17 02/28/19 1 Day Ago History ~01/09/18 Rosuvastatin Calcium 20 mg PO QHS 05/16/17 02/28/19 1 Day Ago History ~01/09/18 amLODIPine 10 mg PO QAM 05/16/17 02/28/19 1 Day Ago History ~01/09/18 carvediloL [Coreg] 3.125 mg PO BID 05/16/17 02/28/19 1 Day Ago History ~01/09/18 Carbidopa/Levodopa 10-100 [Sinemet 3 tab PO TID 30 Days tablet 05/23/17 02/28/19 1 Day Ago Rx 10/100] ~01/09/18 diazePAM TAB [Valium] 5 mg PO Q8H #90 tablet 05/23/17 02/28/19 1 Day Ago Rx ~01/09/18 levoFLOXacin [Levaquin] 750 mg PO QDAY #3 tablet 03/03/19 Unknown Rx ED Physical Exam - General Limitations: Physical Limitation (tremors ) General appearance: alert, in no apparent distress - Head Head exam: Present: atraumatic - Eye Eye exam: Present: PERRL - ENT ENT exam: Present: normal exam - Neck Neck exam: Present: normal inspection - Respiratory Respiratory exam: Present: normal lung sounds bilaterally. Absent: respiratory distress - Cardiovascular Cardiovascular Exam: Present: regular rate - GI/Abdominal GI/Abdominal exam: Present: soft. Absent: distended - Rectal Rectal exam: Present: deferred - Neurological Exam Neurological exam: Present: alert, oriented X3, abnormal gait, motor sensory deficit - Psychiatric Psychiatric exam: Present: suicidal ideation - Skin Skin exam: Present: warm, dry, intact ED Course Vital Signs 07/26/19 07/26/19 07:17 07:18 Temperature 99.0 F 99.0 F Pulse Rate 64 Respiratory 18 Rate Blood Pressure 121/97 121/97 O2 Sat by Pulse 96 Oximetry ED Medical Decision Making - Lab Data Result diagrams: 07/26/19 08:35 07/26/19 08:35 - Medical Decision Making Pt is 49 yo male resident of local alf. Reports altercation with alf worker police was called and pt taken into custody. After being released by police pt brought to the ER for medical clearance. He reports being angry and having suicidal and homicidal thoughts towards the worker at the facility. Pt has PMH of seizure disorder, parkinson disease, bipolar and depression. States his seizures is controlled with CBD oil. Patient is not compliant with Phenobarbital.Pt cooperative and complaint while in ER. He was evaluated by Mental health and cleared to return to alf. Plan of care and management discussed with Dr. Garcia. Phenobarbital level is 2.4 discussed with patient that this is very low and level should at least be 15. Pt states he does not like how it makes him feel and he wants CBD oil. Pt states his sister is able to get him CBD oil. He refused Phenobarbital. ED Disposition Clinical Impression: Suicidal ideation, Seizure disorder Disposition: DC-01 TO HOME OR SELFCARE Is pt being admited?: No Does the pt Need Aspirin: No Condition: Stable Instructions: Recurrent Seizures Adult (ED) Additional Instructions: Return to alf facility. Continue with all previous medications as prescribed by PCP. Follow up with your primary care physcian in 2-3 days. Return to ER for any worsening symptoms. Your Phenobarbital level is low 2.4 which may cause you to have another seizure at any time. Consider resuming your phenobarbital or discuss further treatment option with your doctor. Time of Disposition: 15:37
[2019-07-26 09:10] LABS: Basophils % (Auto) 0.4 % (0.0-1.8); Eosinophils % (Auto) 0.4 % (0.0-4.3); Hematocrit 48.6 % (35.5-45.6); Hemoglobin 16.1 gm/dl (11.8-15.2); Lymphocytes # (Auto) 1.6 K/mm3 (1.2-5.4); Lymphocytes % (Auto) 16.9 % (13.4-35.0); Mean Corpuscular HGB Conc 33 % (32-34); Mean Corpuscular Volume 85 fl (84-94); Monocytes # (Auto) 0.6 K/mm3 (0.0-0.8); Monocytes % (Auto) 5.9 % (0.0-7.3); Red Blood Count 5.71 M/mm3 (3.65-5.03); Red Cell Distribution Width 15.7 % (13.2-15.2)
[2019-07-26 09:22] LABS: Alanine Aminotransferase 38 units/L (7-56); Albumin 5.3 g/dL (3.9-5); BUN/Creatinine Ratio 21; Blood Urea Nitrogen 17 mg/dL (9-20); Calcium 9.7 mg/dL (8.4-10.2); Hemolysis Index 4
[2019-07-26 10:46] LABS: Platelet Count 273 K/mm3 (140-440)
[2019-07-26 13:57] LABS: Bacteria,Urine 1+ /HPF (Negative); Bilirubin,Urine NEG (Negative); Blood,Urine NEG (Negative); Color,Urine Yellow (Yellow); Mucus,Urine FEW /HPF
[2019-07-26 14:01] LABS: Amphetamine Screen,Urine PRESUMPTIVE NEGATIVE; Cocaine Screen,Urine PRESUMPTIVE NEGATIVE; Methadone Screen,Urine PRESUMPTIVE NEGATIVE; Opiate Screen,Urine PRESUMPTIVE NEGATIVE
[2019-07-26 14:33] LABS: Benzodiazepines Screen,Urine PRESUMPTIVE POSITIVE; Cannabinoid Screen,Urine PRESUMPTIVE POSITIVE
[2019-07-27] MEDS: GABAPENTIN 300 MG CAP PO SCH ×3 (10:00→21:49)
[2019-07-27] MEDS: amLODIPine 10 MG TAB PO SCH (10:28)
[2019-07-27] MEDS: carvediloL 3.125 MG TAB PO SCH ×2 (10:28→21:49)
[2019-07-27] MEDS: PARoxetine 20 MG TAB PO SCH (10:31)
[2019-07-27] MEDS: QUEtiapine 200 MG TAB PO SCH (21:50)
[2019-07-28] MEDS: GABAPENTIN 300 MG CAP PO SCH ×3 (08:21→22:17)
[2019-07-28] MEDS: carvediloL 3.125 MG TAB PO SCH ×2 (11:18→22:17)
[2019-07-28] MEDS: amLODIPine 10 MG TAB PO SCH (11:18)
[2019-07-28] MEDS: PARoxetine 20 MG TAB PO SCH (14:49)
[2019-07-28] MEDS ORDERED: ACETAMINOPHEN 500 MG TAB PO ONE (18:07)
[2019-07-28] MEDS: QUEtiapine 200 MG TAB PO SCH (22:17)
[2019-07-29] MEDS: GABAPENTIN 300 MG CAP PO SCH ×3 (08:17→23:18)
[2019-07-29] MEDS: carvediloL 3.125 MG TAB PO SCH ×2 (10:12→23:18)
[2019-07-29] MEDS: amLODIPine 10 MG TAB PO SCH (10:17)
[2019-07-29] MEDS: PARoxetine 20 MG TAB PO SCH (10:17)
[2019-07-29] MEDS: QUEtiapine 200 MG TAB PO SCH (23:18)
[2019-07-30] MEDS: GABAPENTIN 300 MG CAP PO SCH ×3 (09:54→21:44)
[2019-07-30] MEDS: carvediloL 3.125 MG TAB PO SCH ×2 (09:54→21:45)
[2019-07-30] MEDS: amLODIPine 10 MG TAB PO SCH (09:54)
[2019-07-30] MEDS: PARoxetine 20 MG TAB PO SCH (09:55)
[2019-07-30] MEDS: QUEtiapine 200 MG TAB PO SCH ×2 (10:00→21:46)
[2019-07-31] MEDS: GABAPENTIN 300 MG CAP PO SCH ×3 (06:23→22:13)
[2019-07-31] MEDS: PARoxetine 20 MG TAB PO SCH (11:00)
[2019-07-31] MEDS: carvediloL 3.125 MG TAB PO SCH ×2 (11:00→22:13)
[2019-07-31] MEDS: amLODIPine 10 MG TAB PO SCH (11:00)
[2019-07-31] MEDS: QUEtiapine 200 MG TAB PO SCH (22:13)
[2019-08-01] MEDS: GABAPENTIN 300 MG CAP PO SCH ×3 (07:30→21:51)
[2019-08-01] MEDS: amLODIPine 10 MG TAB PO SCH (11:02)
[2019-08-01] MEDS: carvediloL 3.125 MG TAB PO SCH ×2 (11:03→21:51)
[2019-08-01] MEDS: PARoxetine 20 MG TAB PO SCH (11:03)
[2019-08-01] MEDS: QUEtiapine 200 MG TAB PO SCH (21:51)
[2019-08-02] MEDS: GABAPENTIN 300 MG CAP PO SCH ×3 (08:18→22:26)
[2019-08-02] MEDS: carvediloL 3.125 MG TAB PO SCH ×2 (10:16→22:25)
[2019-08-02] MEDS: amLODIPine 10 MG TAB PO SCH (10:16)
[2019-08-02] MEDS: PARoxetine 20 MG TAB PO SCH (10:17)
[2019-08-02] MEDS: QUEtiapine 200 MG TAB PO SCH (22:26)
[2019-08-03] MEDS: GABAPENTIN 300 MG CAP PO SCH ×3 (05:47→22:00)
[2019-08-03] MEDS: amLODIPine 10 MG TAB PO SCH (11:08)
[2019-08-03] MEDS: PARoxetine 20 MG TAB PO SCH (11:09)
[2019-08-03] MEDS: carvediloL 3.125 MG TAB PO SCH ×2 (11:09→22:00)
[2019-08-03] MEDS: QUEtiapine 200 MG TAB PO SCH (22:00)
[2019-08-04] MEDS: GABAPENTIN 300 MG CAP PO SCH ×3 (06:49→21:45)
[2019-08-04] MEDS: amLODIPine 10 MG TAB PO SCH (11:00)
[2019-08-04] MEDS: PARoxetine 20 MG TAB PO SCH (11:00)
[2019-08-04] MEDS: carvediloL 3.125 MG TAB PO SCH ×2 (11:00→21:44)
[2019-08-04] MEDS: QUEtiapine 200 MG TAB PO SCH (21:45)
[2019-08-05] MEDS: GABAPENTIN 300 MG CAP PO SCH ×3 (06:06→22:23)
[2019-08-05] MEDS: carvediloL 3.125 MG TAB PO SCH ×2 (09:43→22:23)
[2019-08-05] MEDS: PARoxetine 20 MG TAB PO SCH (09:44)
[2019-08-05] MEDS: amLODIPine 10 MG TAB PO SCH (09:44)
[2019-08-05] MEDS: QUEtiapine 200 MG TAB PO SCH (22:23)
[2019-08-06] MEDS: GABAPENTIN 300 MG CAP PO SCH ×2 (06:39→15:01)
[2019-08-06] MEDS: carvediloL 3.125 MG TAB PO SCH (10:24)
[2019-08-06] MEDS: PARoxetine 20 MG TAB PO SCH (10:24)
[2019-08-06] MEDS: amLODIPine 10 MG TAB PO SCH (10:25)
[2019-08-06 15:43] VITALS: BP 132/72
== END 2019-08-06 16:00 | disposition other institution (70) ==
LOC: ED 06:48 → EEVIPCON 06:48 → ED 08-06 17:54
DX: F31.9 Bipolar disorder, unspecified (principal); G40.909 Epilepsy, unspecified, not intractable, without status epilepticus; F12.10 Cannabis abuse, uncomplicated; E78.5 Hyperlipidemia, unspecified; Z79.899 Other long term (current) drug therapy
CPT/HCPCS: 36415; 80053; 80184; 80307; 80320; 81001; 85025; 87086; G0480